=== PATIENT | male | born 1990 | race African-American/Black ===

== ENCOUNTER 2023-12-17 10:07 | Emergency (ER) | payer MEDICAID ==
[~2023-12-17] VITALS: Ht 175.3 cm; Wt 73.0 kg
[2023-12-17 10:20] VITALS: BP 110/66; PULSE 74; RESP 18; TEMP 98.6; O2SAT 100
[2023-12-17] MEDS ORDERED: IBUP-2029 MT (10:44)
== END 2023-12-17 10:50 | disposition home or self-care (01) ==
LOC: ER 10:07
DX: M54.50 Low back pain, unspecified (principal); F12.90 Cannabis use, unspecified, uncomplicated; V98.8XXA Other specified transport accidents, initial encounter; Y93.89 Activity, other specified; Y92.89 Other specified places as the place of occurrence of the external cause; Y99.8 Other external cause status
CPT/HCPCS: 99282